=== PATIENT | male | born 1970 | race Hispanic/Latino ===

== ENCOUNTER 2018-06-11 10:05 | Outpatient (CLI) | payer BC ==
[2018-06-11 10:36] LABS: Hematocrit 38.8 % (35.5-45.6); Hemoglobin 13.2 gm/dl (11.8-15.2); Mean Corpuscular HGB Conc 34 % (32-34); Mean Corpuscular Hemoglobin 31 pg (28-32); Mean Corpuscular Volume 92 fl (84-94); Platelet Count 214 K/mm3 (140-440); Red Blood Count 4.22 M/mm3 (3.65-5.03)
[2018-06-11 10:53] LABS: Chol/HDL Ratio 3.65 %
[2018-06-11 15:12] LABS: Alanine Aminotransferase 53 units/L (7-56); Albumin 4.8 g/dL (3.9-5); BUN/Creatinine Ratio 20; Blood Urea Nitrogen 16 mg/dL (9-20); Calcium 9.6 mg/dL (8.4-10.2); Hemolysis Index 4
== END 2018-06-11 10:06 | disposition home or self-care (01) ==
LOC: LAB 10:05
PROVIDERS: ATTEND Family Medicine
DX: I10 Essential (primary) hypertension (principal); E78.5 Hyperlipidemia, unspecified; E03.9 Hypothyroidism, unspecified; M19.90 Unspecified osteoarthritis, unspecified site
CPT/HCPCS: 36415; 80053; 80061; 84153; 85027

== ENCOUNTER 2019-06-27 07:08 | Outpatient (CLI) | payer BC ==
--- NOTE | 2019-07-02 15:11 | Magnetic Resonance Report ---
MRI left shoulder without contrast INDICATION: PAIN IN LEFT SHOULDER. 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 There is mild thickening and intermediate fluid signal within the rotator cuff tendons, especially th e supraspinatus tendon. No significant bursitis. Likewise no acute tendon tear identified. The biceps tendon is intact. There is circumferential labral fraying. IMPRESSION: Mild degenerative changes within the shoulder with mild rotator cuff tendinosis. Signer Name: Brendon Goff MD Signed: 06/27/2019 8:26 AM Workstation Name: [email or web address]
== END 2019-06-27 07:09 | disposition home or self-care (01) ==
LOC: MRI 07:08
PROVIDERS: ATTEND Orthopaedic Surgery
DX: M19.012 Primary osteoarthritis, left shoulder (principal); I10 Essential (primary) hypertension

== ENCOUNTER 2019-07-03 07:28 | Outpatient (CLI) | payer BC ==
[2019-07-03 07:49] LABS: Basophils % (Auto) 0.6 % (0.0-1.8); Eosinophils # (Auto) 0.2 K/mm3 (0.0-0.4); Eosinophils % (Auto) 2.5 % (0.0-4.3); Hematocrit 43.1 % (35.5-45.6); Hemoglobin 14.7 gm/dl (11.8-15.2); Lymphocytes # (Auto) 2.2 K/mm3 (1.2-5.4); Lymphocytes % (Auto) 37.7 % (13.4-35.0); Mean Corpuscular HGB Conc 34 % (32-34); Mean Corpuscular Volume 94 fl (84-94); Monocytes # (Auto) 0.5 K/mm3 (0.0-0.8); Monocytes % (Auto) 8.8 % (0.0-7.3); Platelet Count 194 K/mm3 (140-440); Red Blood Count 4.59 M/mm3 (3.65-5.03)
[2019-07-03 08:07] LABS: Alanine Aminotransferase 119 units/L (7-56); Albumin 4.8 g/dL (3.9-5); BUN/Creatinine Ratio 11; Blood Urea Nitrogen 11 mg/dL (9-20); Calcium 9.8 mg/dL (8.4-10.2); Chol/HDL Ratio 3.65 %; HDL Cholesterol 43 mg/dL (40-59); Hemolysis Index 1; LDL Cholesterol,Direct 109 mg/dL (50-130)
== END 2019-07-03 07:29 | disposition home or self-care (01) ==
LOC: LAB 07:28
PROVIDERS: ATTEND Family Medicine
DX: Z12.5 Encounter for screening for malignant neoplasm of prostate (principal); I10 Essential (primary) hypertension; E78.2 Mixed hyperlipidemia; E66.9 Obesity, unspecified; M19.90 Unspecified osteoarthritis, unspecified site
CPT/HCPCS: 36415; 80053; 80061; 84153; 85025

== ENCOUNTER 2019-12-26 07:40 | Outpatient (CLI) | payer BC ==
--- NOTE | 2019-12-26 08:39 | XRay Report ---
BILATERAL ANKLES 2 VIEWS INDICATION: SURGERY 2011 ON RT ANKLE. COMPARISON: None. IMPRESSION: No acute osseous or soft tissue abnormality. 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 Signer Name: Dennis Ch Jr, MD Signed: 12/26/2019 8:35 AM Workstation Name: [id number]
== END 2019-12-26 07:41 | disposition home or self-care (01) ==
LOC: XRAY 07:40 → LAB 07:40 → XRAY 07:41
PROVIDERS: ATTEND Psychiatry & Neurology Neurology
DX: Z08 Encounter for follow-up examination after completed treatment for malignant neoplasm (principal); M19.071 Primary osteoarthritis, right ankle and foot

== ENCOUNTER 2020-07-15 06:52 | Outpatient (CLI) | payer BC ==
[2020-07-15 07:15] LABS: Hematocrit 42.7 % (35.5-45.6); Hemoglobin 14.4 gm/dl (11.8-15.2); Mean Corpuscular HGB Conc 34 % (32-34); Mean Corpuscular Volume 91 fl (84-94); Platelet Count 198 K/mm3 (140-440); Red Blood Count 4.71 M/mm3 (3.65-5.03)
[2020-07-15 08:04] LABS: Alanine Aminotransferase 40 units/L (7-56); Albumin 4.7 g/dL (3.9-5); BUN/Creatinine Ratio 13; Blood Urea Nitrogen 13 mg/dL (9-20); Calcium 9.8 mg/dL (8.4-10.2); Chol/HDL Ratio 4.37 %; HDL Cholesterol 40 mg/dL (40-59); Hemolysis Index 8; LDL Cholesterol,Direct 122 mg/dL (50-130)
== END 2020-07-15 06:53 | disposition home or self-care (01) ==
LOC: LAB 06:52
PROVIDERS: ATTEND Family Medicine
DX: Z12.5 Encounter for screening for malignant neoplasm of prostate (principal); I10 Essential (primary) hypertension; E29.1 Testicular hypofunction
CPT/HCPCS: 36415; 80053; 80061; 84153; 85027

== ENCOUNTER 2021-02-11 06:58 | Outpatient (CLI) | payer BC ==
[2021-02-11 08:33] LABS: Basophils % (Auto) 0.5 % (0.0-1.8); Eosinophils # (Auto) 0.1 K/mm3 (0.0-0.4); Eosinophils % (Auto) 2.2 % (0.0-4.3); Hemoglobin 14.1 gm/dl (11.8-15.2); Lymphocytes # (Auto) 2.3 K/mm3 (1.2-5.4); Mean Corpuscular HGB Conc 34 % (32-34); Mean Corpuscular Volume 91 fl (84-94); Monocytes # (Auto) 0.6 K/mm3 (0.0-0.8); Monocytes % (Auto) 9.9 % (0.0-7.3); Platelet Count 198 K/mm3 (140-440); Red Cell Distribution Width 13.6 % (13.2-15.2)
[2021-02-11 09:40] LABS: Alanine Aminotransferase 37 units/L (7-56); BUN/Creatinine Ratio 9; Blood Urea Nitrogen 9 mg/dL (9-20); Calcium 9.3 mg/dL (8.4-10.2)
[2021-02-11 09:41] LABS: Albumin 4.4 g/dL (3.9-5); Chol/HDL Ratio 4.44 %; HDL Cholesterol 36 mg/dL (40-59); Hemolysis Index 7; LDL Cholesterol,Direct 112 mg/dL (50-130)
== END 2021-02-11 06:59 | disposition home or self-care (01) ==
LOC: LAB 06:58
PROVIDERS: ATTEND Family Medicine
DX: Z12.5 Encounter for screening for malignant neoplasm of prostate (principal); I10 Essential (primary) hypertension; E78.5 Hyperlipidemia, unspecified
CPT/HCPCS: 36415; 80053; 80061; 84153; 85025

== ENCOUNTER 2021-05-24 07:41 | Outpatient (CLI) | payer BC ==
--- NOTE | 2021-05-24 11:49 | Magnetic Resonance Report ---
MRI LEFT KNEE WITHOUT CONTRAST INDICATION / CLINICAL INFORMATION: PAIN IN LEFT KNEE. TECHNIQUE: Multiplanar, multisequence MR images were obtained. No contrast used. COMPARISON: None available. FINDINGS: ACL: No significant abnormality. PCL: No significant abnormality. DISTAL QUADRICEPS TENDON: No significant abnormality. PATELLAR TENDON: No significant abnormality. MEDIAL MENISCUS: No significant abnormality. LATERAL MENISCUS: No significant abnormality. MCL: Grade 1 sprain of the proximal MCL. LCL: No significant abnormality. DISTAL IT BAND: No significant abnormality. PATELLOFEMORAL ALIGNMENT: No significant abnormality. ARTICULAR CARTILAGE: No significant chondrosis or articular cartilage defect. JOINT SPACE: No significant joint effusion or synovitis. No significant popliteal cyst. No intra-jacque cular bodies. BONES: There is subchondral edema in the medial femoral condyle. There is a small area of T1 hypointe nse signal in the subchondral medial femoral condyle on series 2 image 10. No aggressive osseous lesi on. SOFT TISSUES: No significant abnormality. ADDITIONAL FINDINGS: None. IMPRESSION: 1. Small, nondisplaced subchondral fracture of the medial femoral condyle with associated bone marrow edema. No displaced fracture. 2. Grade 1 MCL sprain. 3. No meniscal tear. Report dictated by: Kenneth Neves MD Report dictated on: 05/24/2021 10:01 AM I have reviewed the images, agree with this report, and edited this report as needed. Signer Name: Rachel Gómez MD Signed: 05/24/2021 11:44 AM Workstation Name: [email or web address]
== END 2021-05-24 07:42 | disposition home or self-care (01) ==
LOC: MRI 07:41
PROVIDERS: ATTEND Orthopaedic Surgery
DX: S72.435A Nondisplaced fracture of medial condyle of left femur, initial encounter for closed fracture (principal); X58.XXXA Exposure to other specified factors, initial encounter; Y93.89 Activity, other specified; Y92.89 Other specified places as the place of occurrence of the external cause; Y99.8 Other external cause status
CPT/HCPCS: 73721

== ENCOUNTER 2022-01-04 07:01 | Outpatient (CLI) | payer BC ==
[2022-01-04 07:37] LABS: Basophils # (Auto) 0.1 K/mm3 (0.0-0.1); Basophils % (Auto) 0.8 % (0.0-1.8); Eosinophils # (Auto) 0.2 K/mm3 (0.0-0.4); Eosinophils % (Auto) 3.3 % (0.0-4.3); Hematocrit 43.9 % (35.5-45.6); Hemoglobin 14.2 gm/dl (11.8-15.2); Lymphocytes # (Auto) 2.1 K/mm3 (1.2-5.4); Lymphocytes % (Auto) 34.2 % (13.4-35.0); Mean Corpuscular HGB Conc 32 % (32-34); Mean Corpuscular Volume 92 fl (84-94); Monocytes # (Auto) 0.6 K/mm3 (0.0-0.8); Monocytes % (Auto) 9.2 % (0.0-7.3); Platelet Count 218 K/mm3 (140-440); Red Blood Count 4.75 M/mm3 (3.65-5.03); Red Cell Distribution Width 13.8 % (13.2-15.2)
[2022-01-04 07:50] LABS: Alanine Aminotransferase 91 units/L (7-56); Albumin 4.8 g/dL (3.9-5); BUN/Creatinine Ratio 12; Blood Urea Nitrogen 11 mg/dL (9-20); Calcium 9.1 mg/dL (8.4-10.2); Chol/HDL Ratio 3.68 %; HDL Cholesterol 47 mg/dL (40-59); Hemolysis Index 9; LDL Cholesterol,Direct 109 mg/dL (50-130)
== END 2022-01-04 07:02 | disposition home or self-care (01) ==
LOC: LAB 07:01
PROVIDERS: ATTEND Family Medicine
DX: E78.5 Hyperlipidemia, unspecified (principal)
CPT/HCPCS: 36415; 80053; 80061; 84153; 85025

== ENCOUNTER 2022-02-03 06:59 | Outpatient (CLI) | payer BC | END 2022-02-03 07:00 | disposition home or self-care (01) | LOC: LAB 06:59 | PROVIDERS: ATTEND Family Medicine | DX: I10 Essential (primary) hypertension (principal) | CPT/HCPCS: 36415; 80053 ==

== ENCOUNTER 2022-06-22 09:11 | Outpatient (CLI) | payer BC ==
--- NOTE | 2022-06-22 11:29 | Ultrasound Report ---
ULTRASOUND SOFT TISSUE HEAD AND NECK HISTORY: Soft tissue disorder, unspecified. Palpable mass on right side of the neck unchanged for yea rs TECHNIQUE: Grayscale ultrasound with color Doppler imaging. FINDINGS: No comparison available. Targeted ultrasound was performed in the right side of the neck at the site of a palpable lesion. The images demonstrate a few benign-appearing lymph nodes in this reg ion. The largest lymph node measures 0.5 cm in short axis. No pathologic adenopathy, mass or fluid co llection. IMPRESSION: Benign appearing right cervical lymph nodes as described. Signer Name: Dennis Ch Jr, MD Signed: 06/22/2022 11:24 AM Workstation Name: [id number]
== END 2022-06-22 09:12 | disposition home or self-care (01) ==
LOC: US 09:11
PROVIDERS: ATTEND Surgery
DX: M79.9 Soft tissue disorder, unspecified (principal)
CPT/HCPCS: 76536